=== PATIENT | female | born 1955 | race Caucasian/White ===

== ENCOUNTER 2022-11-06 08:55 | Outpatient (CLI) | payer MEDICARE, BC | END 2022-11-06 08:56 | disposition home or self-care (01) | LOC: SCSMRI 08:55 | PROVIDERS: ATTEND Family Medicine | DX: S13.4XXS Sprain of ligaments of cervical spine, sequela (principal); G56.21 Lesion of ulnar nerve, right upper limb; R20.2 Paresthesia of skin; M54.10 Radiculopathy, site unspecified; M47.812 Spondylosis without myelopathy or radiculopathy, cervical region | CPT/HCPCS: 72141 ==